=== PATIENT | male | born 1990 | race African-American/Black ===

== ENCOUNTER 2025-03-08 09:35 | Inpatient (IN) ==
--- NOTE | 2025-03-08 10:05 | EKG ---
Test Reason : tachycardia Blood Pressure : */* mmHG Vent. Rate : 139 BPM Atrial Rate : 139 BPM P-R Int : 128 ms QRS Dur : 70 ms QT Int : 292 ms P-R-T Axes : 44 86 -40 degrees QTc Int : 444 ms Sinus tachycardia Possible Left atrial enlargement Anterior infarct , age undetermined Abnormal ECG No previous ECGs available Confirmed by Robert Barnes MD ([id number]) on 03/09/2025 5:53:52 AM Referred By: Confirmed By: Robert Barnes MD
[2025-03-08] MEDS: ZOFRAN INJ 4 MG VIAL IVP ONE (10:11)
[2025-03-08] MEDS: PROTONIX INJ 40 MG VIAL IVP ONE (10:11)
[2025-03-08] MEDS: NS 1,000 ML IV 1,000 ML IV ONE (10:11)
[2025-03-08 10:14] VITALS: BMI 39.0
[2025-03-08 10:29] LABS: MEAN PLATELET VOLUME 8.1 fL (7.4-11.0); RED CELL DISTRIBUTION WIDTH 13.5 % (11.6-16.5)
[2025-03-08 10:42] LABS: COR NA(FOR HYPERGLY) 138 mmol/L (136-145); CREATININE 3.27 mg/dL (0.70-1.30); eGFR NON BLACK RACES 23 (>60)
--- NOTE | 2025-03-08 10:57 | CT ---
EXAM: CT ABDOMEN AND PELVIS WITHOUT CONTRAST HISTORY: abd pain, vomiting ; COMPARISON: None. TECHNIQUE: Axial CT images were obtained through the abdomen and pelvis without contrast. Coronal and sagittal reformatted images were included. All CT scans at this facility use dose modulation, iterative reconstruction, and/or weight based dosing when appropriate to reduce radiation dose to as low as reasonably achievable. FINDINGS: Please note that without the use of intravenous contrast, evaluation of organ parenchyma is limited. Moderate pericecal edema and inflammation. Appendix is thickened up to 15 mm with moderate wall thickening. There are adjacent small free peritoneal air foci in the right lower quadrant. No discrete organized fluid collection. Upstream small bowel loops are distended up to 4.4 cm and are predominantly fluid-filled. Unenhanced liver, gallbladder, spleen, pancreas, adrenals, and kidneys are unremarkable. Normal caliber abdominal aorta. Nondistended urinary bladder. Small volume free pelvic fluid. No acute osseous findings. IMPRESSION: 1. Acute perforated appendicitis with moderate surrounding inflammation and punctate intraperitoneal air foci. No evidence of abscess. 2. Mildly prominent fluid-filled upstream small bowel loops. These may be secondary to distal obstruction or ileus secondary to appendicitis. THIS IS AN ELECTRONICALLY VERIFIED FINAL REPORT 03/08/2025 10:54 AM - Electronically signed by Raleigh Ramirez MD
[2025-03-08] MEDS: ZOSYN VIAL 3.375 GRAMS 3.375 G in NS 100 ML IV 100 ML IV SCH ×2 (11:08→16:57)
[2025-03-08] MEDS: NS 250 ML IV 25 ML IV PRN (11:08)
--- NOTE | 2025-03-08 11:17 | DR.GENAD ---
HPI Time Seen Time Seen by Provider: 03/08/25 10:09 PCP Primary Care Physician: Kathy Strauss Complaint/Symptoms Chief Complaint Doctors Comments: Patient with complaint of vomiting since Wednesday with having abdominal pain since Wednesday. Patient unable to localize abdominal pain well but it seems to be more right-sided lower and upper quadrant. Patient states his last bowel movement was Wednesday. reports he had some dark emesis and even blood-tinged at times. He denies fever. Chief Complaint:: Pt presents to triage via WC, appears weak and is c/o vomiting since Wednesday. He started having abdominal pain after eating [employer] on Wednesday but states abdominal pain now feels like "bloated", denies pain. States his LBM was Wednesday, was normal, but usually has daily BM. reports emesis was initially "black", at time of triage emesis appears to be blood tinged COVID-19 Coronavirus risk:travel/contact w/high risk person: No Has patient experienced Coronavirus symptoms: Yes Coronavirus symptoms experienced: Fever Source History Provided: Patient and Significant Other Mode of Arrival Mode of Arrival: Wheelchair Timing Onset of Chief Complaint: 03/06/25 PMH PMH Past Medical History: Yes Past Medical History: Hypertension Past Surgical History: No Family History History of Family Medical Conditions: Yes Family Medical History: Hypertension Social History Does patient currently use any type of tobacco product: No Have you used tobacco products in the last 12 months: No Type of Tobacco Use: None Does any household member use tobacco: No Alcohol Use: None Lives With: Spouse and Family Lives Where: Home Travel Risk Coronavirus risk:travel/contact w/high risk person: No Has patient experienced Coronavirus symptoms: Yes Coronavirus symptoms experienced: Fever Infectious screening In the last 2 months have you had wt loss of >10#?: NO Have you had fever, night sweats or hemotysis?: Yes Have you traveled outside the country in the last 6 months?: No Isolation: Contact ROS Review of Systems Constitutional: No Symptoms Reported Eyes: No Symptoms Reported ENTM: No Symptoms Reported Respiratoy: No Symptoms Reported Cardiovascular: No Symptoms Reported Gastrointestinal/Abdominal: See HPI Genitourinary: No Symptoms Reported Neurological: No Symptoms Reported Musculoskeletal: No Symptoms Reported Integumentary: No Symptoms Reported Hematologic/Lymphatic: No Symptoms Reported Endocrine: No Symptoms Reported Psychiatric: No Symptoms Reported All Other Systems: Reviewed and Negative PE Vital Signs Vitals: Vital Signs Temperature 100.0 F Pulse Rate 133 Pulse Rate 141 Pulse Rate 140 Pulse Rate 143 Pulse Rate 141 Respiratory Rate 37 Respiratory Rate 37 Respiratory Rate 34 Respiratory Rate 20 Respiratory Rate 22 Blood Pressure 132/96 Blood Pressure 147/80 Blood Pressure 144/98 O2 Sat by Pulse Oximetry 96 O2 Sat by Pulse Oximetry 95 General Limitations: No Limitations General Appearance: Alert and In No Apparent Distress Head Head Exam: Normal Inspection Eyes Eye exam: Normal Appearance Neck Neck Exam: Normal Inspection Chest Chest Inspection: Normal Inspection Respiratory Respiratory Exam: Normal Lung Sounds Bilat Respiratory Exam: Bilateral: Clear to Auscultation Cardiovascular Cardiovascular Exam: Regular Rate and Normal Rhythm Abdominal Exam Abdominal Exam: Distention, Tenderness (More so on the right lower quadrant but difficult to examine due to patient compliance anxiety), Guarding and Rigidity; negative Rebound, Organomegaly or Ascites Extremities Extremities Exam: Normal Inspection Back Back Exam: Normal Inspection Neurologic Neurological Exam: Alert and Oriented X3 Psychiatric Psychiatric Exam: Normal Affect and Normal Mood Skin Skin Exam: Warm, Dry, Intact and Normal Color COURSE Treatment Treatment: Discussed results of workup with patient and family. Patient started on antibiotic and fluids. Attempting to place NG tube. Discussed case with surgeon. Patient agreeable to admission. Consultation Called: 11:20 Consultation Comments: Discussed case with surgeon and he is agreeable to admission and will assess for possible surgery today. Critical Care Notes Total Time (mins): 32 Critical Diagnosis: Acute perforated appendicitis, Sepsis Critical Interventions: IV fluids, NG tube and IV antibiotics. Time spent educating patient and family and coordinating with specialist and arranging admission. ROR Labs Reviewed Laboratory Results Reviewed?: Yes 03/08/25 10:14 03/08/25 10:14 Laboratory: WBC 19.8 X10^3/uL (3.6-10.0) H 03/08/25 10:14 RBC 5.93 X10^6/uL (4.7-6.0) 03/08/25 10:14 Hgb 17.9 g/dL (13.5-18.0) 03/08/25 10:14 Hct 51.3 % (42.0-54.0) 03/08/25 10:14 MCV 86.5 fL (80.0-100.0) 03/08/25 10:14 MCH 30.2 pg (27.0-34.0) 03/08/25 10:14 MCHC 34.9 g/dL (33.0-35.0) 03/08/25 10:14 RDW 13.5 % (11.6-16.5) 03/08/25 10:14 Plt Count 266 X10^3/uL (150.0-450.0) 03/08/25 10:14 MPV 8.1 fL (7.4-11.0) 03/08/25 10:14 Neut % (Auto) 88.7 % (42.0-75.0) H 03/08/25 10:14 Lymph % (Auto) 3.2 % (21.0-51.0) L 03/08/25 10:14 [place] % (Auto) 7.9 % (0.0-13.0) 03/08/25 10:14 Eos % (Auto) 0.0 % (0.9-2.9) L 03/08/25 10:14 Baso % (Auto) 0.2 % (0.2-1.0) 03/08/25 10:14 Neut # (Auto) 17.6 x10^3/uL (2.2-4.8) H 03/08/25 10:14 Lymph # (Auto) 0.6 X10^3/uL (1.3-2.9) L 03/08/25 10:14 [place] # (Auto) 1.6 x10^3/uL (0.3-0.8) H 03/08/25 10:14 Eos # (Auto) 0.0 x10^3/uL (0.0-0.2) 03/08/25 10:14 Baso # (Auto) 0.0 X10^3/uL (0.0-0.1) 03/08/25 10:14 Absolute Nucleated RBC 0.0 /100WBC 03/08/25 10:14 Sodium 136 mmol/L (136-145) 03/08/25 10:14 Corrected Sodium 138 mmol/L (136-145) 03/08/25 10:14 Potassium 3.6 mmol/L (3.5-5.1) 03/08/25 10:14 Chloride 95 mmol/L (98-107) L 03/08/25 10:14 Carbon Dioxide 24.9 mmol/L (21-32) 03/08/25 10:14 BUN 27 mg/dL (7-18) H 03/08/25 10:14 Creatinine 3.27 mg/dL (0.70-1.30) H 03/08/25 10:14 Est GFR (MDRD) Af Amer 28 (>60) L 03/08/25 10:14 Est GFR (MDRD) Non-Af 23 (>60) L 03/08/25 10:14 Glucose 163 mg/dL (65-99) H 03/08/25 10:14 Lactic Acid 2.2 mmol/L (0.4-2.0) H 03/08/25 10:14 Calcium 10.2 mg/dL (8.5-10.1) H 03/08/25 10:14 Corrected Calcium TNP 03/08/25 10:14 Total Bilirubin 1.70 mg/dL (0.2-1.0) H 03/08/25 10:14 AST 15 Units/L (15-37) 03/08/25 10:14 ALT 22 Units/L (12-78) 03/08/25 10:14 Alkaline Phosphatase 88 Units/L (46-116) 03/08/25 10:14 Total Protein 9.9 g/dL (6.4-8.2) H 03/08/25 10:14 Albumin 4.4 g/dL (3.4-5.0) 03/08/25 10:14 Globulin 5.5 g/dL (2.5-4.5) H 03/08/25 10:14 Albumin/Globulin Ratio 0.8 Ratio (1.1-2.1) L 03/08/25 10:14 Amylase 32 Units/L (25-115) 03/08/25 10:14 Lipase 12 Units/L (16-77) L 03/08/25 10:14 Other Results Comments: Name: Satish Redmond : 1990 Sex: M Location: Order Number(s): [id number] Procedure(s):CT ABDOMEN/PELVIS W/O CON Ordering Physician: Stephen Ruiz Primary Care: NFD,None Service Date: 03/08/25 Service Time: 1000 EXAM: CT ABDOMEN AND PELVIS WITHOUT CONTRAST HISTORY: abd pain, vomiting ; COMPARISON: None. TECHNIQUE: Axial CT images were obtained through the abdomen and pelvis without contrast. Coronal and sagittal reformatted images were included. All CT scans at this facility use dose modulation, iterative reconstruction, and/or weight based dosing when appropriate to reduce radiation dose to as low as reasonably achievable. FINDINGS: Please note that without the use of intravenous contrast, evaluation of organ parenchyma is limited. Moderate pericecal edema and inflammation. Appendix is thickened up to 15 mm with moderate wall thickening. There are adjacent small free peritoneal air foci in the right lower quadrant. No discrete organized fluid collection. Upstream small bowel loops are distended up to 4.4 cm and are predominantly fluid-filled. Unenhanced liver, gallbladder, spleen, pancreas, adrenals, and kidneys are unremarkable. Normal caliber abdominal aorta. Nondistended urinary bladder. Small volume free pelvic fluid. No acute osseous findings. IMPRESSION: 1. Acute perforated appendicitis with moderate surrounding inflammation and punctate intraperitoneal air foci. No evidence of abscess. 2. Mildly prominent fluid-filled upstream small bowel loops. These may be secondary to distal obstruction or ileus secondary to appendicitis. THIS IS AN ELECTRONICALLY VERIFIED FINAL REPORT 03/08/2025 10:54 AM - Electronically signed by Raleigh Ramirez MD EKG Rate: 139 [place]: Normal Rhythm: ST Hypertrophy: LAE ST: Nonsp Opioid Opioid Risk Tool Age (William box if 16-45): Yes History of Preadolescent Sexual Abuse: No Total: 1 Total Score Risk Category: Low Risk Copyright: Narciso BUCKLEY predicting aberrant behaviors Discharge Plan Diagnosis Discharge Problem: Acute perforated appendicitis, Sepsis Discharge Plan Patient Disposition: 09 ADMITTED INPATIENT Condition: Stable Prescriptions: No Action [facility] Concerns: Post Hospitalization: new medications and changes needed to prevent readmission or further decline. Pt educated and given instructions on all concerns. Plan of Treatment: Continue with present treatment and follow up plan. Pt is to keep follow up appointment as instructed and take medications as ordered. Orders to Discharge Patient Discharge Orders: Transfer (Routine); Ordered 03/08/25 Ordered By: Stephen Ruiz Follow ups/Referrals Follow ups/Referrals: NFD,None [Primary Care Provider] - 3 days Instructions Stand Alone Forms: Find Help Web Site, Post Hospital Follow Up Care Print Language: WELSH
[2025-03-08] MEDS: ATIVAN INJ 2 MG VIAL IVP ONE (11:20)
[2025-03-08] MEDS ORDERED: KETAMINE HCL ONE (11:26)
[2025-03-08] MEDS ORDERED: ULTANE GAS IN ONE (11:26)
[2025-03-08] MEDS ORDERED: PRECEDEX INJ VIAL ONE (11:26)
[2025-03-08] MEDS ORDERED: XYLOCAINE 2 % (PLAIN) ONE (11:26)
--- NOTE | 2025-03-08 12:43 | RAD ---
EXAM: CHEST, 1 VIEW HISTORY: pre op appendectomy; COMPARISON: None. TECHNIQUE: P ortable chest radiograph FINDINGS: Low lung volumes with no consolidating infiltrates or pleural fluid collections. Heart size and mediastinal contours are normal. No acute osseous abnormalities of the chest. IMPRESSION: No acute radiographic abnormalities of the chest THIS IS AN ELECTRONICALLY VERIFIED FINAL REPORT 03/08/2025 12:40 PM - Electronically signed by Noah Loyd MD
[2025-03-08] MEDS: OFIRMEV IV 1000 MG VIAL 1,000 MG/100 ML VIAL IV ONE (12:47)
[2025-03-08] MEDS: ZEMURON 100 MG VIAL ONE (12:47)
[2025-03-08] MEDS: ZOFRAN INJ 4 MG VIAL ONE ×2 (12:47→15:59)
[2025-03-08] MEDS: DIPRIVAN VIAL 20 ML ONE (12:47)
[2025-03-08] MEDS: FENTANYL VIAL INJ 100 mcg ONE (12:48)
[2025-03-08] MEDS: VERSED ONE (12:48)
[2025-03-08] MEDS ORDERED: ULTRAM PO PRN (13:03)
[2025-03-08] MEDS ORDERED: NS 250 ML IV 25 ML IV PRN (13:03)
[2025-03-08] MEDS ORDERED: MORPHINE SULFATE INJ 2 MG INJ IVP PRN (13:03)
[2025-03-08] MEDS ORDERED: TYLENOL 325 MG TAB PO PRN (13:03)
[2025-03-08] MEDS: LR 1,000 ML IV 1,000 ML IV ONE ×2 (13:23→14:12)
[2025-03-08] MEDS: NS 100 ML IV 100 ML ONE (13:24)
[2025-03-08] MEDS: VERSED IVP PRN (13:24)
[2025-03-08] MEDS: LR 1,000 ML IV 2,000 ML IV PRN (13:24)
[2025-03-08] MEDS: ANCEF VIAL 1 GRAM ONE (13:24)
[2025-03-08] MEDS: ANCEF VIAL 1 GRAM IV PRN (13:25)
[2025-03-08] MEDS: DIPRIVAN VIAL 200 ML IVP PRN (13:37)
[2025-03-08] MEDS: KETAMINE HCL IV PRN (13:37)
[2025-03-08] MEDS ORDERED: XYLOCAINE 2 % (PLAIN) PRN (13:37)
[2025-03-08] MEDS: FENTANYL VIAL INJ 100 mcg IVP PRN (13:37)
[2025-03-08] MEDS: ZEMURON 100 MG VIAL IVP PRN (13:37)
[2025-03-08] MEDS: DECADRON INJ IVP PRN (13:45)
[2025-03-08] MEDS: BACTROBAN TOPICAL OINT ONE (13:50)
[2025-03-08] MEDS: MARCAINE 0.5% ONE (13:50)
[2025-03-08] MEDS: DILAUDID INJ ONE (13:55)
[2025-03-08] MEDS: ZOFRAN INJ 4 MG VIAL IVP PRN (13:57)
[2025-03-08] MEDS: DECADRON INJ ONE (14:00)
[2025-03-08] MEDS: OFIRMEV IV 1000 MG VIAL 1,000 MG/100 ML VIAL IV PRN (14:02)
[2025-03-08] MEDS: BRIDION ONE (14:03)
[2025-03-08 14:07] LABS: BLOOD/HEMOGLOBIN,URINE 1+ (NEGATIVE); LEUKOCYTE ESTERASE ,URINE NEGATIVE (NEGATIVE); NITRITES,URINE NEGATIVE (NEGATIVE)
[2025-03-08 14:16] LABS: APPEARANCE,URINE HAZY (CLEAR)
[2025-03-08 14:17] LABS: HYALINE CASTS, URINE FEW /LPF (NEGATIVE); SQUAMOUS EPITHELIAL CELL,UR RARE /HPF (NEGATIVE)
[2025-03-08] MEDS: PRECEDEX INJ VIAL IVP PRN (14:43)
[2025-03-08] MEDS: BRIDION IVP PRN (14:48)
[2025-03-08] MEDS: DILAUDID INJ IVP PRN (14:49)
[2025-03-08] MEDS ORDERED: ZOFRAN INJ 4 MG VIAL IVP PRN (15:47)
[2025-03-08] MEDS ORDERED: DILAUDID INJ IVP PRN (15:47)
[2025-03-08] MEDS ORDERED: BARHEMSYS INJ IVP PRN (15:47)
[2025-03-08] MEDS ORDERED: REGLAN INJ 10 MG VIAL IVP PRN (15:47)
[2025-03-08] MEDS ORDERED: BENADRYL INJ 50 MG VIAL IVP PRN (15:47)
[2025-03-08] MEDS: NS 1,000 ML IV 1,000 ML ONE (15:59)
[2025-03-08] MEDS: PROTONIX INJ 40 MG VIAL ONE (15:59)
[2025-03-08] MEDS: ATIVAN 20 MG/10 ML VIAL ONE (16:00)
[2025-03-08] MEDS: DUONEB 0.5 MG/3 MG (3 mL) NEB ONE (16:02)
[2025-03-08] MEDS: D5 1/2 NS 1,000 ML 1,000 ML IV SCH (16:16)
[2025-03-08] MEDS: K-RIDER 10 MEQ/100 ML WATER 10 MEQ/100 ML BAG IV SCH (16:16)
[2025-03-08] MEDS: NS 1,000 ML IV 1,000 ML IV SCH (16:57)
[2025-03-08] MEDS: CONSULT PHARMACY - POTASSIUM & MAGNESIUM XX SCH (16:58)
[2025-03-09 05:25] LABS: MEAN PLATELET VOLUME 8.3 fL (7.4-11.0); RED CELL DISTRIBUTION WIDTH 13.5 % (11.6-16.5)
[2025-03-09 05:37] LABS: COR NA(FOR HYPERGLY) 138 mmol/L (136-145); CREATININE 1.61 mg/dL (0.70-1.30); eGFR NON BLACK RACES 53 (>60)
[2025-03-09 06:22] LABS: COR CA(FOR HYPOALB) 10.0 mg/dL (8.5-10.1)
[2025-03-09] MEDS ORDERED: FLAGYL IV PREMIX 500 MG BAG 500 MG/100 ML BAG IV SCH (11:00)
--- NOTE | 2025-03-09 12:44 | DR.PROGNOT ---
HOSPITAL PROGRESS NOTE Progress Note for Day of: Progress Note Date: 03/09/25 Chief Complaint Chief Complaint: Patient status post diagnostic laparoscopy, appendectomy, lysis of adhesions and drainage of right lower quadrant abscess. Patient is feeling better today, less abdominal pain, no further vomiting. Only mild drainage via MANUEL. White count is down to 13.8, BUN down to 20, creatinine down to 1.6 from 4. Electrolytes liver function test are all normal. Patient is afebrile with diffuse abdominal tenderness, bowel sounds are present but hypoactive. Past Medical Family Social History Allergies: Allergies metronidazole (From Flagyl) Allergy (Verified 03/08/25 10:02) Vital Signs Vital Signs: Vital Signs Temperature 98.2 F Pulse Rate 98 Pulse Rate 99 Pulse Rate 101 Pulse Rate 102 Pulse Rate 100 Pulse Rate 98 Pulse Rate 99 Pulse Rate 96 Pulse Rate 99 Pulse Rate 100 Pulse Rate 98 Pulse Rate 98 Pulse Rate 102 Pulse Rate 100 Pulse Rate 99 Pulse Rate 100 Pulse Rate 97 Pulse Rate 102 Pulse Rate 98 Pulse Rate 101 Pulse Rate 97 Pulse Rate 99 Respiratory Rate 20 Respiratory Rate 20 Respiratory Rate 19 Respiratory Rate 20 Respiratory Rate 18 Respiratory Rate 19 Blood Pressure 135/82 Blood Pressure 135/87 Blood Pressure 141/82 Blood Pressure 126/75 Blood Pressure 133/73 Blood Pressure 125/81 Blood Pressure 127/72 Blood Pressure 127/72 Blood Pressure 131/85 Blood Pressure 131/85 O2 Sat by Pulse Oximetry 96 O2 Sat by Pulse Oximetry 98 O2 Sat by Pulse Oximetry 98 O2 Sat by Pulse Oximetry 96 O2 Sat by Pulse Oximetry 96 O2 Sat by Pulse Oximetry 97 O2 Sat by Pulse Oximetry 97 O2 Sat by Pulse Oximetry 97 O2 Sat by Pulse Oximetry 98 O2 Sat by Pulse Oximetry 97 O2 Sat by Pulse Oximetry 96 O2 Sat by Pulse Oximetry 96 O2 Sat by Pulse Oximetry 98 O2 Sat by Pulse Oximetry 96 O2 Sat by Pulse Oximetry 95 O2 Sat by Pulse Oximetry 97 O2 Sat by Pulse Oximetry 98 O2 Sat by Pulse Oximetry 96 O2 Sat by Pulse Oximetry 98 O2 Sat by Pulse Oximetry 96 O2 Sat by Pulse Oximetry 98 O2 Sat by Pulse Oximetry 97 Physical Exam Oriented: Normal Eyes: Normal Ear: Normal Nose: Normal Throat: Normal Respiratory: Normal Cardiovascular: Normal GI:Auscultation: Decreased (Soft abdomen with mild to moderate diffuse tenderness, bowel sounds present but hypoactive.) Mood Description: Calm Speech Pattern: Clear and Appropriate Laboratory and Diagnostics 03/09/25 04:38 11/14/25 04:38 Labs: Laboratory WBC 13.8 X10^3/uL (3.6-10.0) H 03/09/25 04:38 RBC 5.14 X10^6/uL (4.7-6.0) 03/09/25 04:38 Hgb 15.2 g/dL (13.5-18.0) D 03/09/25 04:38 Hct 44.6 % (42.0-54.0) 03/09/25 04:38 MCV 86.7 fL (80.0-100.0) 03/09/25 04:38 MCH 29.6 pg (27.0-34.0) 03/09/25 04:38 MCHC 34.2 g/dL (33.0-35.0) 03/09/25 04:38 RDW 13.5 % (11.6-16.5) 03/09/25 04:38 Plt Count 186 X10^3/uL (150.0-450.0) 03/09/25 04:38 MPV 8.3 fL (7.4-11.0) 03/09/25 04:38 Neut % (Auto) 88.3 % (42.0-75.0) H 03/09/25 04:38 Lymph % (Auto) 3.0 % (21.0-51.0) L 03/09/25 04:38 [place] % (Auto) 8.5 % (0.0-13.0) 03/09/25 04:38 Eos % (Auto) 0.0 % (0.9-2.9) L 03/09/25 04:38 Baso % (Auto) 0.2 % (0.2-1.0) 03/09/25 04:38 Neut # (Auto) 12.2 x10^3/uL (2.2-4.8) H 03/09/25 04:38 Lymph # (Auto) 0.4 X10^3/uL (1.3-2.9) L 03/09/25 04:38 [place] # (Auto) 1.2 x10^3/uL (0.3-0.8) H 03/09/25 04:38 Eos # (Auto) 0.0 x10^3/uL (0.0-0.2) 03/09/25 04:38 Baso # (Auto) 0.0 X10^3/uL (0.0-0.1) 03/09/25 04:38 Absolute Nucleated RBC 0.0 /100WBC 03/09/25 04:38 Sodium 137 mmol/L (136-145) 03/09/25 04:38 Corrected Sodium 138 mmol/L (136-145) 03/09/25 04:38 Potassium 4.2 mmol/L (3.5-5.1) 03/09/25 04:38 Chloride 99 mmol/L (98-107) 03/09/25 04:38 Carbon Dioxide 28.4 mmol/L (21-32) 03/09/25 04:38 BUN 20 mg/dL (7-18) H 03/09/25 04:38 Creatinine 1.61 mg/dL (0.70-1.30) H 03/09/25 04:38 Est GFR (MDRD) Af Amer > 60 (>60) 03/09/25 04:38 Est GFR (MDRD) Non-Af 53 (>60) L 03/09/25 04:38 Glucose 139 mg/dL (65-99) H 03/09/25 04:38 Lactic Acid 1.2 mmol/L (0.4-2.0) 03/08/25 20:00 Calcium 9.4 mg/dL (8.5-10.1) 03/09/25 04:38 Corrected Calcium 10.0 mg/dL (8.5-10.1) 03/09/25 04:38 Magnesium 2.6 mg/dL (2.0-2.9) 03/09/25 04:38 Total Bilirubin 0.80 mg/dL (0.2-1.0) 03/09/25 04:38 AST 15 Units/L (15-37) 03/09/25 04:38 ALT 22 Units/L (12-78) 03/09/25 04:38 Alkaline Phosphatase 77 Units/L (46-116) 03/09/25 04:38 Total Protein 8.3 g/dL (6.4-8.2) H 03/09/25 04:38 Albumin 3.2 g/dL (3.4-5.0) L 03/09/25 04:38 Globulin 5.1 g/dL (2.5-4.5) H 03/09/25 04:38 Albumin/Globulin Ratio 0.6 Ratio (1.1-2.1) L 03/09/25 04:38 Amylase 32 Units/L (25-115) 03/08/25 10:14 Lipase 12 Units/L (16-77) L 03/08/25 10:14 Specimen Type Catherized urine 03/08/25 13:54 Urine Color Yellow (YELLOW) 03/08/25 13:54 Urine Appearance Hazy (CLEAR) 03/08/25 13:54 Urine pH 5.0 (5.0 - 8.0) 03/08/25 13:54 Ur Specific [place] 1.025 (1.000-1.030) 03/08/25 13:54 Urine Protein 2+ (NEGATIVE) 03/08/25 13:54 Urine Glucose (UA) Negative (NEGATIVE) 03/08/25 13:54 Urine Ketones Negative (NEGATIVE) 03/08/25 13:54 Urine Blood 1+ (NEGATIVE) 03/08/25 13:54 Urine Nitrite Negative (NEGATIVE) 03/08/25 13:54 Urine Bilirubin Negative (NEGATIVE) 03/08/25 13:54 Urine Urobilinogen Normal (NORMAL) 03/08/25 13:54 Ur Leukocyte Esterase Negative (NEGATIVE) 03/08/25 13:54 Urine RBC 3-5 /HPF (0-3) A 03/08/25 13:54 Urine WBC 0-2 /HPF (0-5) 03/08/25 13:54 Ur Squamous Epith Cells Rare /HPF (NEGATIVE) 03/08/25 13:54 Amorphous Sediment Trace /HPF (NEGATIVE) 03/08/25 13:54 Urine Bacteria Trace /HPF (NEGATIVE) 03/08/25 13:54 Hyaline Casts Few /LPF (NEGATIVE) 03/08/25 13:54 Ur Culture Indicated? No/not indicated 03/08/25 13:54 Assessment and Plan 1: Ruptured appendicitis with appendiceal abscess and adhesions status post diagnostic laparoscopy appendectomy, lysis of adhesions, drainage of appendiceal abscess. Will start him on liquid diet, continue IV Zosyn, out of bed and will keep the MANUEL today. Problem Patient Problems: Patient Problems Sepsis (Acute) A41.9 Acute perforated appendicitis (Acute) K35.32
[2025-03-09] MEDS ORDERED: ROBITUSSIN DM PO PRN (15:15)
[2025-03-09] MEDS: NORCO 5/325 MG TAB PO PRN (23:17)
[2025-03-10] MEDS: ZOFRAN INJ 4 MG VIAL IVP PRN (03:10)
[2025-03-10] MEDS: MORPHINE SULFATE INJ 4 MG IVP PRN (04:19)
[2025-03-10 06:18] LABS: MEAN PLATELET VOLUME 9.1 fL (7.4-11.0); RED CELL DISTRIBUTION WIDTH 13.5 % (11.6-16.5)
[2025-03-10 06:44] LABS: COR CA(FOR HYPOALB) 9.7 mg/dL (8.5-10.1); COR NA(FOR HYPERGLY) 140 mmol/L (136-145); CREATININE 1.09 mg/dL (0.70-1.30); eGFR NON BLACK RACES > 60 (>60)
--- NOTE | 2025-03-10 10:53 | DR.PROGNOT ---
HOSPITAL PROGRESS NOTE Progress Note for Day of: Progress Note Date: 03/10/25 Chief Complaint Chief Complaint: Patient was complaining of abdominal pain last night, today he is feeling better, out of bed ambulating. MANUEL drainage is minimal with serous fluid. White count is still elevated up to 14,000 with hemoglobin 14.8, normal electrolytes and liver function test which is back to normal now, liver function tests are slightly elevated. Patient is afebrile, abdomen is soft with decreased bowel sounds. Past Medical Family Social History Allergies: Allergies metronidazole (From Flagyl) Allergy (Verified 03/08/25 10:02) Vital Signs Vital Signs: Vital Signs Temperature 98.8 F Temperature 98.2 F Pulse Rate 89 Pulse Rate 104 Pulse Rate 93 Pulse Rate 100 Pulse Rate 105 Pulse Rate 105 Pulse Rate 93 Pulse Rate 94 Pulse Rate 92 Pulse Rate 92 Pulse Rate 94 Pulse Rate 94 Pulse Rate 93 Pulse Rate 93 Pulse Rate 92 Pulse Rate 93 Pulse Rate 93 Pulse Rate 98 Pulse Rate 97 Pulse Rate 95 Pulse Rate 94 Pulse Rate 96 Pulse Rate 95 Pulse Rate 96 Pulse Rate 95 Pulse Rate 95 Pulse Rate 90 Pulse Rate 96 Pulse Rate 97 Pulse Rate 97 Pulse Rate 95 Pulse Rate 92 Pulse Rate 103 Pulse Rate 92 Pulse Rate 92 Pulse Rate 93 Pulse Rate 92 Pulse Rate 93 Pulse Rate 93 Respiratory Rate 20 Respiratory Rate 18 Respiratory Rate 20 Respiratory Rate 23 Respiratory Rate 20 Respiratory Rate 29 Respiratory Rate 23 Respiratory Rate 18 Blood Pressure 134/76 Blood Pressure 161/79 Blood Pressure 140/83 Blood Pressure 144/95 Blood Pressure 140/83 Blood Pressure 144/86 Blood Pressure 144/86 Blood Pressure 141/89 Blood Pressure 141/89 Blood Pressure 154/89 Blood Pressure 154/89 Blood Pressure 162/87 Blood Pressure 162/87 Blood Pressure 155/85 Blood Pressure 155/85 O2 Sat by Pulse Oximetry 95 O2 Sat by Pulse Oximetry 94 O2 Sat by Pulse Oximetry 92 O2 Sat by Pulse Oximetry 95 O2 Sat by Pulse Oximetry 95 O2 Sat by Pulse Oximetry 92 O2 Sat by Pulse Oximetry 94 O2 Sat by Pulse Oximetry 94 O2 Sat by Pulse Oximetry 95 O2 Sat by Pulse Oximetry 92 O2 Sat by Pulse Oximetry 93 O2 Sat by Pulse Oximetry 96 O2 Sat by Pulse Oximetry 95 O2 Sat by Pulse Oximetry 97 O2 Sat by Pulse Oximetry 94 O2 Sat by Pulse Oximetry 93 O2 Sat by Pulse Oximetry 95 O2 Sat by Pulse Oximetry 94 O2 Sat by Pulse Oximetry 93 O2 Sat by Pulse Oximetry 92 O2 Sat by Pulse Oximetry 93 O2 Sat by Pulse Oximetry 96 O2 Sat by Pulse Oximetry 93 O2 Sat by Pulse Oximetry 92 O2 Sat by Pulse Oximetry 90 O2 Sat by Pulse Oximetry 90 O2 Sat by Pulse Oximetry 91 O2 Sat by Pulse Oximetry 93 O2 Sat by Pulse Oximetry 93 O2 Sat by Pulse Oximetry 94 O2 Sat by Pulse Oximetry 95 O2 Sat by Pulse Oximetry 95 O2 Sat by Pulse Oximetry 94 O2 Sat by Pulse Oximetry 94 O2 Sat by Pulse Oximetry 94 O2 Sat by Pulse Oximetry 93 O2 Sat by Pulse Oximetry 95 O2 Sat by Pulse Oximetry 92 O2 Sat by Pulse Oximetry 91 Physical Exam Oriented: Normal Eyes: Normal Ear: Normal Nose: Normal Throat: Normal Respiratory: Normal Cardiovascular: Normal GI:Auscultation: Decreased (Soft abdomen with mild to moderate diffuse tenderness, bowel sounds present but hypoactive.) Mood Description: Calm Speech Pattern: Clear and Appropriate Laboratory and Diagnostics 03/10/25 05:38 03/10/25 05:38 Labs: 03/08/25 10:14 Blood Blood Culture - Preliminary 03/08/25 10:14 Blood Blood Culture - Preliminary Laboratory WBC 14.0 X10^3/uL (3.6-10.0) H 03/10/25 05:38 RBC 4.94 X10^6/uL (4.7-6.0) 03/10/25 05:38 Hgb 14.7 g/dL (13.5-18.0) 03/10/25 05:38 Hct 43.2 % (42.0-54.0) 03/10/25 05:38 MCV 87.4 fL (80.0-100.0) 03/10/25 05:38 MCH 29.9 pg (27.0-34.0) 03/10/25 05:38 MCHC 34.2 g/dL (33.0-35.0) 03/10/25 05:38 RDW 13.5 % (11.6-16.5) 03/10/25 05:38 Plt Count 255 X10^3/uL (150.0-450.0) 03/10/25 05:38 MPV 9.1 fL (7.4-11.0) 03/10/25 05:38 Neut % (Auto) 86.8 % (42.0-75.0) H 03/10/25 05:38 Lymph % (Auto) 3.8 % (21.0-51.0) L 03/10/25 05:38 [place] % (Auto) 9.2 % (0.0-13.0) 03/10/25 05:38 Eos % (Auto) 0.1 % (0.9-2.9) L 03/10/25 05:38 Baso % (Auto) 0.1 % (0.2-1.0) L 03/10/25 05:38 Neut # (Auto) 12.1 x10^3/uL (2.2-4.8) H 03/10/25 05:38 Lymph # (Auto) 0.5 X10^3/uL (1.3-2.9) L 03/10/25 05:38 [place] # (Auto) 1.3 x10^3/uL (0.3-0.8) H 03/10/25 05:38 Eos # (Auto) 0.0 x10^3/uL (0.0-0.2) 03/10/25 05:38 Baso # (Auto) 0.0 X10^3/uL (0.0-0.1) 03/10/25 05:38 Absolute Nucleated RBC 0.1 /100WBC 03/10/25 05:38 Sodium 140 mmol/L (136-145) 03/10/25 05:38 Corrected Sodium 140 mmol/L (136-145) 03/10/25 05:38 Potassium 4.3 mmol/L (3.5-5.1) 03/10/25 05:38 Chloride 100 mmol/L (98-107) 03/10/25 05:38 Carbon Dioxide 32.7 mmol/L (21-32) H 03/10/25 05:38 BUN 16 mg/dL (7-18) 03/10/25 05:38 Creatinine 1.09 mg/dL (0.70-1.30) 03/10/25 05:38 Est GFR (MDRD) Af Amer > 60 (>60) 03/10/25 05:38 Est GFR (MDRD) Non-Af > 60 (>60) 03/10/25 05:38 Glucose 116 mg/dL (65-99) H 03/10/25 05:38 Lactic Acid 1.2 mmol/L (0.4-2.0) 03/08/25 20:00 Calcium 9.0 mg/dL (8.5-10.1) 03/10/25 05:38 Corrected Calcium 9.7 mg/dL (8.5-10.1) 03/10/25 05:38 Magnesium 2.6 mg/dL (2.0-2.9) 03/09/25 04:38 Total Bilirubin 0.80 mg/dL (0.2-1.0) 03/10/25 05:38 AST 98 Units/L (15-37) H 03/10/25 05:38 ALT 86 Units/L (12-78) H 03/10/25 05:38 Alkaline Phosphatase 97 Units/L (46-116) 03/10/25 05:38 Total Protein 7.4 g/dL (6.4-8.2) 03/10/25 05:38 Albumin 3.1 g/dL (3.4-5.0) L 03/10/25 05:38 Globulin 4.3 g/dL (2.5-4.5) 03/10/25 05:38 Albumin/Globulin Ratio 0.7 Ratio (1.1-2.1) L 03/10/25 05:38 Amylase 32 Units/L (25-115) 03/08/25 10:14 Lipase 12 Units/L (16-77) L 03/08/25 10:14 Specimen Type Catherized urine 03/08/25 13:54 Urine Color Yellow (YELLOW) 03/08/25 13:54 Urine Appearance Hazy (CLEAR) 03/08/25 13:54 Urine pH 5.0 (5.0 - 8.0) 03/08/25 13:54 Ur Specific [place] 1.025 (1.000-1.030) 03/08/25 13:54 Urine Protein 2+ (NEGATIVE) 03/08/25 13:54 Urine Glucose (UA) Negative (NEGATIVE) 03/08/25 13:54 Urine Ketones Negative (NEGATIVE) 03/08/25 13:54 Urine Blood 1+ (NEGATIVE) 03/08/25 13:54 Urine Nitrite Negative (NEGATIVE) 03/08/25 13:54 Urine Bilirubin Negative (NEGATIVE) 03/08/25 13:54 Urine Urobilinogen Normal (NORMAL) 03/08/25 13:54 Ur Leukocyte Esterase Negative (NEGATIVE) 03/08/25 13:54 Urine RBC 3-5 /HPF (0-3) A 03/08/25 13:54 Urine WBC 0-2 /HPF (0-5) 03/08/25 13:54 Ur Squamous Epith Cells Rare /HPF (NEGATIVE) 03/08/25 13:54 Amorphous Sediment Trace /HPF (NEGATIVE) 03/08/25 13:54 Urine Bacteria Trace /HPF (NEGATIVE) 03/08/25 13:54 Hyaline Casts Few /LPF (NEGATIVE) 03/08/25 13:54 Ur Culture Indicated? No/not indicated 03/08/25 13:54 Assessment and Plan 1: Ruptured appendicitis with appendiceal abscess and adhesions status post diagnostic laparoscopy appendectomy, lysis of adhesions, drainage of appendiceal abscess day 2 Will start him on full liquid diet, continue IV Zosyn, out of bed and will keep the MANUEL today. Decrease IVF Problem Patient Problems: Patient Problems Sepsis (Acute) A41.9 Acute perforated appendicitis (Acute) K35.32
[2025-03-10] MEDS ORDERED: MYLICON TAB 80 MG CHEW PO PRN (14:05)
[2025-03-11 06:28] LABS: COR CA(FOR HYPOALB) 9.9 mg/dL (8.5-10.1); CREATININE 1.09 mg/dL (0.70-1.30); eGFR NON BLACK RACES > 60 (>60)
[2025-03-11 06:47] LABS: MEAN PLATELET VOLUME 9.0 fL (7.4-11.0); RED CELL DISTRIBUTION WIDTH 13.6 % (11.6-16.5)
[2025-03-11] MEDS ORDERED: CONSULT PHARMACY - POTASSIUM & MAGNESIUM XX SCH (07:00)
--- NOTE | 2025-03-11 08:42 | DR.PROGNOT ---
HOSPITAL PROGRESS NOTE Progress Note for Day of: Progress Note Date: 03/11/25 Chief Complaint Chief Complaint: Patient is feeling better today with less abdominal pain, no nausea or vomiting, no bowel movement yet but passing flatus. Minimal drainage in AMNUEL. White count still elevated 14.4, O2 sat 98%, normal BUN/creatinine, alkaline phosphatase is elevated to 223, bilirubin 2.3. Abdomen is soft and flat today with positive bowel sounds. No wound infection. Past Medical Family Social History Past Med/Fam/Surg Hx: No changes since H&P and Changes noted (describe) Allergies: Allergies metronidazole (From Flagyl) Allergy (Verified 03/08/25 10:02) Review Of Systems ROS: No change since H&P Vital Signs Vital Signs: Vital Signs Temperature 98.1 F Pulse Rate 63 Respiratory Rate 16 Blood Pressure 155/69 O2 Sat by Pulse Oximetry 98 Physical Exam Oriented: Normal Eyes: Normal Ear: Normal Nose: Normal Throat: Normal Respiratory: Normal Cardiovascular: Normal GI:Auscultation: Decreased (Soft abdomen with mild to moderate diffuse tenderness, bowel sounds present but hypoactive.) Mood Description: Calm Speech Pattern: Clear and Appropriate Laboratory and Diagnostics 03/11/25 06:10 03/11/25 06:10 Labs: 03/08/25 10:14 Blood Blood Culture - Preliminary 03/08/25 10:14 Blood Blood Culture - Preliminary Laboratory WBC 14.4 X10^3/uL (3.6-10.0) H 03/11/25 06:10 RBC 4.90 X10^6/uL (4.7-6.0) 03/11/25 06:10 Hgb 14.6 g/dL (13.5-18.0) 03/11/25 06:10 Hct 43.1 % (42.0-54.0) 03/11/25 06:10 MCV 88.1 fL (80.0-100.0) 03/11/25 06:10 MCH 29.8 pg (27.0-34.0) 03/11/25 06:10 MCHC 33.8 g/dL (33.0-35.0) 03/11/25 06:10 RDW 13.6 % (11.6-16.5) 03/11/25 06:10 Plt Count 231 X10^3/uL (150.0-450.0) 03/11/25 06:10 MPV 9.0 fL (7.4-11.0) 03/11/25 06:10 Neut % (Auto) 81.7 % (42.0-75.0) H 03/11/25 06:10 Lymph % (Auto) 6.4 % (21.0-51.0) L 03/11/25 06:10 [place] % (Auto) 10.7 % (0.0-13.0) 03/11/25 06:10 Eos % (Auto) 0.3 % (0.9-2.9) L 03/11/25 06:10 Baso % (Auto) 0.9 % (0.2-1.0) 03/11/25 06:10 Neut # (Auto) 11.8 x10^3/uL (2.2-4.8) H 03/11/25 06:10 Lymph # (Auto) 0.9 X10^3/uL (1.3-2.9) L 03/11/25 06:10 [place] # (Auto) 1.5 x10^3/uL (0.3-0.8) H 03/11/25 06:10 Eos # (Auto) 0.0 x10^3/uL (0.0-0.2) 03/11/25 06:10 Baso # (Auto) 0.1 X10^3/uL (0.0-0.1) 03/11/25 06:10 Absolute Nucleated RBC 0.1 /100WBC 03/11/25 06:10 Sodium 139 mmol/L (136-145) 03/11/25 06:10 Corrected Sodium TNP 03/11/25 06:10 Potassium 3.5 mmol/L (3.5-5.1) 03/11/25 06:10 Chloride 101 mmol/L (98-107) 03/11/25 06:10 Carbon Dioxide 27.4 mmol/L (21-32) 03/11/25 06:10 BUN 14 mg/dL (7-18) 03/11/25 06:10 Creatinine 1.09 mg/dL (0.70-1.30) 03/11/25 06:10 Est GFR (MDRD) Af Amer > 60 (>60) 03/11/25 06:10 Est GFR (MDRD) Non-Af > 60 (>60) 03/11/25 06:10 Glucose 102 mg/dL (65-99) H 03/11/25 06:10 Lactic Acid 1.2 mmol/L (0.4-2.0) 03/08/25 20:00 Calcium 8.9 mg/dL (8.5-10.1) 03/11/25 06:10 Corrected Calcium 9.9 mg/dL (8.5-10.1) 03/11/25 06:10 Magnesium 2.1 mg/dL (2.0-2.9) 03/11/25 06:10 Total Bilirubin 2.30 mg/dL (0.2-1.0) H 03/11/25 06:10 AST 162 Units/L (15-37) H 03/11/25 06:10 ALT 223 Units/L (12-78) H 03/11/25 06:10 Alkaline Phosphatase 135 Units/L (46-116) H 03/11/25 06:10 Total Protein 7.7 g/dL (6.4-8.2) 03/11/25 06:10 Albumin 2.7 g/dL (3.4-5.0) L 03/11/25 06:10 Globulin 5.0 g/dL (2.5-4.5) H 03/11/25 06:10 Albumin/Globulin Ratio 0.5 Ratio (1.1-2.1) L 03/11/25 06:10 Amylase 32 Units/L (25-115) 03/08/25 10:14 Lipase 12 Units/L (16-77) L 03/08/25 10:14 Specimen Type Catherized urine 03/08/25 13:54 Urine Color Yellow (YELLOW) 03/08/25 13:54 Urine Appearance Hazy (CLEAR) 03/08/25 13:54 Urine pH 5.0 (5.0 - 8.0) 03/08/25 13:54 Ur Specific [place] 1.025 (1.000-1.030) 03/08/25 13:54 Urine Protein 2+ (NEGATIVE) 03/08/25 13:54 Urine Glucose (UA) Negative (NEGATIVE) 03/08/25 13:54 Urine Ketones Negative (NEGATIVE) 03/08/25 13:54 Urine Blood 1+ (NEGATIVE) 03/08/25 13:54 Urine Nitrite Negative (NEGATIVE) 03/08/25 13:54 Urine Bilirubin Negative (NEGATIVE) 03/08/25 13:54 Urine Urobilinogen Normal (NORMAL) 03/08/25 13:54 Ur Leukocyte Esterase Negative (NEGATIVE) 03/08/25 13:54 Urine RBC 3-5 /HPF (0-3) A 03/08/25 13:54 Urine WBC 0-2 /HPF (0-5) 03/08/25 13:54 Ur Squamous Epith Cells Rare /HPF (NEGATIVE) 03/08/25 13:54 Amorphous Sediment Trace /HPF (NEGATIVE) 03/08/25 13:54 Urine Bacteria Trace /HPF (NEGATIVE) 03/08/25 13:54 Hyaline Casts Few /LPF (NEGATIVE) 03/08/25 13:54 Ur Culture Indicated? No/not indicated 03/08/25 13:54 Assessment and Plan 1: Ruptured appendicitis with appendiceal abscess and adhesions status post diagnostic laparoscopy appendectomy, lysis of adhesions, drainage of appendiceal abscess day 3. Same full liquid diet, continue IV Zosyn, out of bed and will keep the MANUEL today. Problem Patient Problems: Patient Problems Sepsis (Acute) A41.9 Acute perforated appendicitis (Acute) K35.32
[2025-03-11] MEDS: K-DUR TAB 20 MEQ PO SCH ×2 (09:37)
[2025-03-11] MEDS: K-RIDER 10 MEQ/100 ML WATER 10 MEQ/100 ML BAG IV ONE (12:09)
[2025-03-12 04:58] LABS: MEAN PLATELET VOLUME 8.5 fL (7.4-11.0); RED CELL DISTRIBUTION WIDTH 14.0 % (11.6-16.5)
[2025-03-12 05:08] LABS: COR CA(FOR HYPOALB) 9.9 mg/dL (8.5-10.1); CREATININE 0.98 mg/dL (0.70-1.30); eGFR NON BLACK RACES > 60 (>60)
[2025-03-12 05:12] LABS: PLATELET MORPHOLOGY COMMENT NORMAL (NORMAL)
[2025-03-12] MEDS: CONSULT PHARMACY - POTASSIUM & MAGNESIUM XX SCH (08:23)
--- NOTE | 2025-03-12 12:38 | RAD ---
EXAM: CHEST, 1 VIEW HISTORY: POST OP APPENDECTOMY, INCREASED WBC; COMPARISON: No relevant prior studies were available for comparison at the time of interpretation. TECHNIQUE: CHEST, 1 VIEW FINDINGS: Chest: Lines and tubes: None Mediastinum: Cardiac and mediastinal shadow is within normal limits for size and contour. Pulmonary vessels: No pulmonary vascular congestion. Lung garcia: No suspicious airspace opacity. Pleura: No effusion. No pneumothorax. Bones and soft tissues: No acute osseous or soft tissue abnormality. IMPRESSION: 1. No acute cardiopulmonary abnormality THIS IS AN ELECTRONICALLY VERIFIED FINAL REPORT 03/12/2025 12:24 PM - Electronically signed by Johnnie Shannon MD
--- NOTE | 2025-03-12 13:07 | DR.PROGNOT ---
HOSPITAL PROGRESS NOTE Progress Note for Day of: Progress Note Date: 03/12/25 Chief Complaint Chief Complaint: Patient is feeling better today with less abdominal pain, no nausea or vomiting, Had small bowel movement yesterday. Was coughing today, chest x-ray was read as normal. White count is still elevated 17.7 with normal electrolytes as well as BUN/creatinine. Liver function tests and bilirubin are improving with bilirubin is down to 1.9, alkaline phosphatase is down to 145. Temperature is 98, was 100 last night. Abdomen is soft with good bowel sounds. On soft diet. Past Medical Family Social History Past Med/Fam/Surg Hx: No changes since H&P and Changes noted (describe) Allergies: Allergies metronidazole (From Flagyl) Allergy (Verified 03/08/25 10:02) Review Of Systems ROS: No change since H&P Vital Signs Vital Signs: Vital Signs Temperature 98.7 F Temperature 99.2 F Temperature 99.2 F Pulse Rate 90 Pulse Rate 95 Pulse Rate 95 Respiratory Rate 20 Respiratory Rate 20 Respiratory Rate 20 Blood Pressure 140/88 Blood Pressure 138/96 Blood Pressure 138/96 O2 Sat by Pulse Oximetry 99 O2 Sat by Pulse Oximetry 100 O2 Sat by Pulse Oximetry 100 Physical Exam Oriented: Normal Eyes: Normal Ear: Normal Nose: Normal Throat: Normal Respiratory: Normal Cardiovascular: Normal GI:Auscultation: Decreased (Soft abdomen with mild to moderate diffuse tenderness, bowel sounds present but hypoactive.) Mood Description: Calm Speech Pattern: Clear and Appropriate Laboratory and Diagnostics 03/12/25 04:42 03/12/25 04:42 Labs: 03/08/25 10:14 Blood Blood Culture - Preliminary 03/08/25 10:14 Blood Blood Culture - Preliminary Laboratory WBC 17.7 X10^3/uL (3.6-10.0) H 03/12/25 04:42 RBC 4.90 X10^6/uL (4.7-6.0) 03/12/25 04:42 Hgb 14.5 g/dL (13.5-18.0) 03/12/25 04:42 Hct 42.7 % (42.0-54.0) 03/12/25 04:42 MCV 87.2 fL (80.0-100.0) 03/12/25 04:42 MCH 29.5 pg (27.0-34.0) 03/12/25 04:42 MCHC 33.9 g/dL (33.0-35.0) 03/12/25 04:42 RDW 14.0 % (11.6-16.5) 03/12/25 04:42 Plt Count 260 X10^3/uL (150.0-450.0) 03/12/25 04:42 Plt Count Comment Adequate (ADEQUATE) 03/12/25 04:42 MPV 8.5 fL (7.4-11.0) 03/12/25 04:42 Neut % (Auto) 80.2 % (42.0-75.0) H 03/12/25 04:42 Lymph % (Auto) 6.9 % (21.0-51.0) L 03/12/25 04:42 [place] % (Auto) 12.1 % (0.0-13.0) 03/12/25 04:42 Eos % (Auto) 0.6 % (0.9-2.9) L 03/12/25 04:42 Baso % (Auto) 0.2 % (0.2-1.0) 03/12/25 04:42 Neut # (Auto) 12.5 x10^3/uL (2.2-4.8) H 03/12/25 04:42 Lymph # (Auto) 1.1 X10^3/uL (1.3-2.9) L 03/12/25 04:42 [place] # (Auto) 1.9 x10^3/uL (0.3-0.8) H 03/12/25 04:42 Eos # (Auto) 0.1 x10^3/uL (0.0-0.2) 03/12/25 04:42 Baso # (Auto) 0.0 X10^3/uL (0.0-0.1) 03/12/25 04:42 Absolute Nucleated RBC 0.4 /100WBC 03/12/25 04:42 Total Counted 100 03/12/25 04:42 Neutrophils % (Manual) 76 % (39-76) 03/12/25 04:42 Lymphocytes % (Manual) 10 % (13-43) L 03/12/25 04:42 Monocytes % (Manual) 14 % (4-9) H 03/12/25 04:42 Plt Morphology Comment Normal (NORMAL) 03/12/25 04:42 RBC Morphology Normal (NORMAL) 03/12/25 04:42 Sodium 137 mmol/L (136-145) 03/12/25 04:42 Corrected Sodium TNP 03/12/25 04:42 Potassium 4.2 mmol/L (3.5-5.1) 03/12/25 04:42 Chloride 101 mmol/L (98-107) 03/12/25 04:42 Carbon Dioxide 24.2 mmol/L (21-32) 03/12/25 04:42 BUN 11 mg/dL (7-18) 03/12/25 04:42 Creatinine 0.98 mg/dL (0.70-1.30) 03/12/25 04:42 Est GFR (MDRD) Af Amer > 60 (>60) 03/12/25 04:42 Est GFR (MDRD) Non-Af > 60 (>60) 03/12/25 04:42 Glucose 104 mg/dL (65-99) H 03/12/25 04:42 Lactic Acid 1.2 mmol/L (0.4-2.0) 03/08/25 20:00 Calcium 8.9 mg/dL (8.5-10.1) 03/12/25 04:42 Corrected Calcium 9.9 mg/dL (8.5-10.1) 03/12/25 04:42 Magnesium 2.1 mg/dL (2.0-2.9) 03/11/25 06:10 Total Bilirubin 1.90 mg/dL (0.2-1.0) H 03/12/25 04:42 AST 89 Units/L (15-37) H 03/12/25 04:42 ALT 170 Units/L (12-78) H 03/12/25 04:42 Alkaline Phosphatase 145 Units/L (46-116) H 03/12/25 04:42 Total Protein 7.9 g/dL (6.4-8.2) 03/12/25 04:42 Albumin 2.7 g/dL (3.4-5.0) L 03/12/25 04:42 Globulin 5.2 g/dL (2.5-4.5) H 03/12/25 04:42 Albumin/Globulin Ratio 0.5 Ratio (1.1-2.1) L 03/12/25 04:42 Amylase 32 Units/L (25-115) 03/08/25 10:14 Lipase 12 Units/L (16-77) L 03/08/25 10:14 Specimen Type Catherized urine 03/08/25 13:54 Urine Color Yellow (YELLOW) 03/08/25 13:54 Urine Appearance Hazy (CLEAR) 03/08/25 13:54 Urine pH 5.0 (5.0 - 8.0) 03/08/25 13:54 Ur Specific [place] 1.025 (1.000-1.030) 03/08/25 13:54 Urine Protein 2+ (NEGATIVE) 03/08/25 13:54 Urine Glucose (UA) Negative (NEGATIVE) 03/08/25 13:54 Urine Ketones Negative (NEGATIVE) 03/08/25 13:54 Urine Blood 1+ (NEGATIVE) 03/08/25 13:54 Urine Nitrite Negative (NEGATIVE) 03/08/25 13:54 Urine Bilirubin Negative (NEGATIVE) 03/08/25 13:54 Urine Urobilinogen Normal (NORMAL) 03/08/25 13:54 Ur Leukocyte Esterase Negative (NEGATIVE) 03/08/25 13:54 Urine RBC 3-5 /HPF (0-3) A 03/08/25 13:54 Urine WBC 0-2 /HPF (0-5) 03/08/25 13:54 Ur Squamous Epith Cells Rare /HPF (NEGATIVE) 03/08/25 13:54 Amorphous Sediment Trace /HPF (NEGATIVE) 03/08/25 13:54 Urine Bacteria Trace /HPF (NEGATIVE) 03/08/25 13:54 Hyaline Casts Few /LPF (NEGATIVE) 03/08/25 13:54 Ur Culture Indicated? No/not indicated 03/08/25 13:54 Assessment and Plan 1: Ruptured appendicitis with appendiceal abscess and adhesions status post diagnostic laparoscopy appendectomy, lysis of adhesions, drainage of appendiceal abscess day 3. Soft diet , continue IV Zosyn, Possible discharge in the morning. Problem Patient Problems: Patient Problems Sepsis (Acute) A41.9 Acute perforated appendicitis (Acute) K35.32
[2025-03-13 06:01] LABS: MEAN PLATELET VOLUME 8.2 fL (7.4-11.0); RED CELL DISTRIBUTION WIDTH 14.1 % (11.6-16.5)
[2025-03-13 06:20] LABS: COR CA(FOR HYPOALB) 9.9 mg/dL (8.5-10.1); CREATININE 1.03 mg/dL (0.70-1.30); eGFR NON BLACK RACES > 60 (>60)
[2025-03-13] MEDS ORDERED: CONSULT PHARMACY - POTASSIUM & MAGNESIUM XX SCH (07:00)
[2025-03-13] MEDS: POTASSIUM CHLORIDE LIQ PO SCH (08:09)
--- NOTE | 2025-03-13 08:41 | DR.PROGNOT ---
HOSPITAL PROGRESS NOTE Progress Note for Day of: Progress Note Date: 03/13/25 Chief Complaint Chief Complaint: Patient is feeling better today with less abdominal pain, no nausea or vomiting, Had small bowel movement yesterday. White count still elevated 15.5, potassium 2.9 magnesium 1.4, liver function test and bilirubin are slightly elevated. Patient is having low-grade fever around 100. Abdomen is soft with only mild to moderate diffuse tenderness more towards the right lower quadrant, bowel sounds positive but hypoactive. Past Medical Family Social History Past Med/Fam/Surg Hx: No changes since H&P and Changes noted (describe) Allergies: Allergies metronidazole (From Flagyl) Allergy (Verified 03/08/25 10:02) Review Of Systems ROS: No change since H&P Vital Signs Vital Signs: Vital Signs Temperature 100 F Temperature 100.7 F Pulse Rate 92 Respiratory Rate 21 Blood Pressure 138/84 O2 Sat by Pulse Oximetry 98 Physical Exam Oriented: Normal Eyes: Normal Ear: Normal Nose: Normal Throat: Normal Respiratory: Normal Cardiovascular: Normal GI:Auscultation: Decreased (Soft abdomen with mild to moderate diffuse tenderness, bowel sounds present but hypoactive.) Mood Description: Calm Speech Pattern: Clear and Appropriate Laboratory and Diagnostics 03/13/25 05:36 03/13/25 05:36 Labs: 03/08/25 10:14 Blood Blood Culture - Preliminary 03/08/25 10:14 Blood Blood Culture - Preliminary Laboratory WBC 15.5 X10^3/uL (3.6-10.0) H 03/13/25 05:36 RBC 4.41 X10^6/uL (4.7-6.0) L 03/13/25 05:36 Hgb 13.1 g/dL (13.5-18.0) L 03/13/25 05:36 Hct 38.0 % (42.0-54.0) L 03/13/25 05:36 MCV 86.1 fL (80.0-100.0) 03/13/25 05:36 MCH 29.6 pg (27.0-34.0) 03/13/25 05:36 MCHC 34.4 g/dL (33.0-35.0) 03/13/25 05:36 RDW 14.1 % (11.6-16.5) 03/13/25 05:36 Plt Count 276 X10^3/uL (150.0-450.0) 03/13/25 05:36 Plt Count Comment Adequate (ADEQUATE) 03/12/25 04:42 MPV 8.2 fL (7.4-11.0) 03/13/25 05:36 Neut % (Auto) 79.4 % (42.0-75.0) H 03/13/25 05:36 Lymph % (Auto) 6.6 % (21.0-51.0) L 03/13/25 05:36 [place] % (Auto) 13.2 % (0.0-13.0) H 03/13/25 05:36 Eos % (Auto) 0.6 % (0.9-2.9) L 03/13/25 05:36 Baso % (Auto) 0.2 % (0.2-1.0) 03/13/25 05:36 Neut # (Auto) 12.3 x10^3/uL (2.2-4.8) H 03/13/25 05:36 Lymph # (Auto) 1.0 X10^3/uL (1.3-2.9) L 03/13/25 05:36 [place] # (Auto) 2.0 x10^3/uL (0.3-0.8) H 03/13/25 05:36 Eos # (Auto) 0.1 x10^3/uL (0.0-0.2) 03/13/25 05:36 Baso # (Auto) 0.0 X10^3/uL (0.0-0.1) 03/13/25 05:36 Absolute Nucleated RBC 0.0 /100WBC 03/13/25 05:36 Total Counted 100 03/12/25 04:42 Neutrophils % (Manual) 76 % (39-76) 03/12/25 04:42 Lymphocytes % (Manual) 10 % (13-43) L 03/12/25 04:42 Monocytes % (Manual) 14 % (4-9) H 03/12/25 04:42 Plt Morphology Comment Normal (NORMAL) 03/12/25 04:42 RBC Morphology Normal (NORMAL) 03/12/25 04:42 Sodium 139 mmol/L (136-145) 03/13/25 05:36 Corrected Sodium TNP 03/13/25 05:36 Potassium 2.9 mmol/L (3.5-5.1) L* 03/13/25 05:36 Chloride 100 mmol/L (98-107) 03/13/25 05:36 Carbon Dioxide 31.3 mmol/L (21-32) 03/13/25 05:36 BUN 8 mg/dL (7-18) 03/13/25 05:36 Creatinine 1.03 mg/dL (0.70-1.30) 03/13/25 05:36 Est GFR (MDRD) Af Amer > 60 (>60) 03/13/25 05:36 Est GFR (MDRD) Non-Af > 60 (>60) 03/13/25 05:36 Glucose 95 mg/dL (65-99) 03/13/25 05:36 Lactic Acid 1.2 mmol/L (0.4-2.0) 03/08/25 20:00 Calcium 8.8 mg/dL (8.5-10.1) 03/13/25 05:36 Corrected Calcium 9.9 mg/dL (8.5-10.1) 03/13/25 05:36 Magnesium 2.2 mg/dL (2.0-2.9) 03/13/25 05:36 Total Bilirubin 1.40 mg/dL (0.2-1.0) H 03/13/25 05:36 AST 57 Units/L (15-37) H 03/13/25 05:36 ALT 142 Units/L (12-78) H 03/13/25 05:36 Alkaline Phosphatase 153 Units/L (46-116) H 03/13/25 05:36 Total Protein 7.6 g/dL (6.4-8.2) 03/13/25 05:36 Albumin 2.6 g/dL (3.4-5.0) L 03/13/25 05:36 Globulin 5.0 g/dL (2.5-4.5) H 03/13/25 05:36 Albumin/Globulin Ratio 0.5 Ratio (1.1-2.1) L 03/13/25 05:36 Amylase 32 Units/L (25-115) 03/08/25 10:14 Lipase 12 Units/L (16-77) L 03/08/25 10:14 Specimen Type Catherized urine 03/08/25 13:54 Urine Color Yellow (YELLOW) 03/08/25 13:54 Urine Appearance Hazy (CLEAR) 03/08/25 13:54 Urine pH 5.0 (5.0 - 8.0) 03/08/25 13:54 Ur Specific [place] 1.025 (1.000-1.030) 03/08/25 13:54 Urine Protein 2+ (NEGATIVE) 03/08/25 13:54 Urine Glucose (UA) Negative (NEGATIVE) 03/08/25 13:54 Urine Ketones Negative (NEGATIVE) 03/08/25 13:54 Urine Blood 1+ (NEGATIVE) 03/08/25 13:54 Urine Nitrite Negative (NEGATIVE) 03/08/25 13:54 Urine Bilirubin Negative (NEGATIVE) 03/08/25 13:54 Urine Urobilinogen Normal (NORMAL) 03/08/25 13:54 Ur Leukocyte Esterase Negative (NEGATIVE) 03/08/25 13:54 Urine RBC 3-5 /HPF (0-3) A 03/08/25 13:54 Urine WBC 0-2 /HPF (0-5) 03/08/25 13:54 Ur Squamous Epith Cells Rare /HPF (NEGATIVE) 03/08/25 13:54 Amorphous Sediment Trace /HPF (NEGATIVE) 03/08/25 13:54 Urine Bacteria Trace /HPF (NEGATIVE) 03/08/25 13:54 Hyaline Casts Few /LPF (NEGATIVE) 03/08/25 13:54 Ur Culture Indicated? No/not indicated 03/08/25 13:54 Assessment and Plan 1: Ruptured appendicitis with appendiceal abscess and adhesions status post diagnostic laparoscopy appendectomy, lysis of adhesions, drainage of appendiceal abscess day 4. Soft diet , continue IV Zosyn, To obtain abdominal and pelvic CT scan. Out of bed ambulatory. Problem Patient Problems: Patient Problems Sepsis (Acute) A41.9 Acute perforated appendicitis (Acute) K35.32
[2025-03-13] MEDS: OMNIPAQUE 350 mg/mL 100 mL BTL IVP NR (13:12)
[2025-03-13] MEDS: READI-CAT 2 ONE (13:12)
[2025-03-13] MEDS: OMNIPAQUE 350 mg/mL 100 mL BTL 100 ML ONE (14:40)
--- NOTE | 2025-03-13 15:51 | CT ---
EXAM: ABDCMEN/PELVIS WITH CON HISTORY: abd abcess; APPY, HTN COMPARISON: CT abdomen and pelvis 03/08/2025 TECHNIQUE: Multiple CT axial images of the abdomen and pelvis were obtained with IV contrast. Coronal and sagittal images were reconstructed. Dose reduction techniques included Automated Exposure Control (AEC) and adjustment of mA and kV. FINDINGS: Surgical changes are present from appendectomy. Contrast is present in the distal small bowel as well as the proximal colon so that visualization of the structures is adequate. 1 rounded peripherally enhancing fluid collection inferior to the cecum measures 3.9 cm consistent with an abscess. Tiny collections of air are present within it. Another similar fluid collection superior to the distal ileum medial to the colon measures 4.3 cm consistent with an abscess. A 3rd fluid collection in the dependent pelvis measures 5.8 cm and could also be an abscess. There is fluid around the cecum and ileum as well as edema from inflammatory change. In addition the wall in the distal ileum in this vicinity is thickened likely representing inflammatory change. No pneumoperitoneum. No bowel dilatation to suggest obstruction. Very minimal atelectasis in the right lower lobe. Liver, gallbladder, spleen, adrenal glands, and pancreas are unremarkable. Renal enhancement is uniform and symmetric with no solid mass. There is no hydronephrosis or significant perirenal edema. The bladder has normal distention. It has no wall thickening or perivesical edema. IMPRESSION: 1. (3) fluid collections suggesting abscess THIS IS AN ELECTRONICALLY VERIFIED FINAL REPORT 03/13/2025 3:48 PM - Electronically signed by Zurdo Bobo MD
[2025-03-13] MEDS: ZESTORETIC 10/ 12.5MG PO SCH (17:10)
[2025-03-14 06:51] LABS: MEAN PLATELET VOLUME 8.2 fL (7.4-11.0); RED CELL DISTRIBUTION WIDTH 13.9 % (11.6-16.5)
[2025-03-14 06:56] LABS: COR CA(FOR HYPOALB) 9.8 mg/dL (8.5-10.1); CREATININE 1.11 mg/dL (0.70-1.30); eGFR NON BLACK RACES > 60 (>60)
[2025-03-14] MEDS ORDERED: CONSULT PHARMACY - POTASSIUM & MAGNESIUM XX SCH ×2 (08:00→09:00)
[2025-03-14 08:03] VITALS: TEMP 97.9; O2SAT 97
[2025-03-14] MEDS: K-RIDER 10 MEQ/100 ML WATER 10 MEQ/100 ML BAG IV PRN (10:21)
[2025-03-14] MEDS: K-DUR TAB 20 MEQ PO ONE (10:21)
[2025-03-14] MEDS: D5 1/2 NS + KCL 20 MEQ/L 1,000 ML IV SCH (10:26)
[2025-03-14 11:46] VITALS: BP 141/82; PULSE 93; RESP 18
[2025-03-14] MEDS: POTASSIUM CHLORIDE LIQ PO ONE (12:31)
== END 2025-03-14 16:10 | disposition home or self-care (01) | DRG 397 ==
LOC: ER 09:35 → ICU 11:26 → MED/SURG 03-10 13:26
PROVIDERS: ADMIT Surgery; ATTEND Surgery
PROC: APPYLAP (ICD-10-PCS; 2025-03-08 13:15)
DX: K35.211 Acute appendicitis with generalized peritonitis, with perforation and abscess; R10.31 Right lower quadrant pain; E80.6 Other disorders of bilirubin metabolism; R94.31 Abnormal electrocardiogram [ECG] [EKG]; K66.0 Peritoneal adhesions (postprocedural) (postinfection); R94.4 Abnormal results of kidney function studies; R79.89 Other specified abnormal findings of blood chemistry; A41.89 Other specified sepsis; D72.828 Other elevated white blood cell count; R11.2 Nausea with vomiting, unspecified; R53.1 Weakness; I10 Essential (primary) hypertension; R10.84 Generalized abdominal pain; R00.0 Tachycardia, unspecified